=== PATIENT | female | born 2000 | race Caucasian/White ===

== ENCOUNTER 2024-04-11 07:51 | Outpatient (RCR) | payer BC, SELFPAY ==
[2024-04-11 07:45] VITALS: BP 106/62
[2024-04-11] MEDS: CORTROSYN 1 MG IV (08:29)
[2024-04-11 10:13] LABS: ACTH Stim Cortisol 0 Min 21.3 ug/dl
[2024-04-11 10:34] LABS: ACTH Stim Cortisol 30 Min 29.5 ug/dl
[2024-04-11 12:37] LABS: ACTH Stim Cortisol 60 Min 31.4 ug/dl
== END 2024-04-12 10:25 | disposition home or self-care (01) ==
LOC: OID 07:51
PROVIDERS: ATTENDING PHYSICIAN Internal Medicine Geriatric Medicine
DX: E27.40 Unspecified adrenocortical insufficiency (principal)
CPT/HCPCS: 36415; 82533; 96374

== ENCOUNTER → 2024-04-20 13:32 | Outpatient (REF) | payer BC, SELFPAY | LOC: HWRAD 13:32 | PROVIDERS: ATTENDING PHYSICIAN Internal Medicine Geriatric Medicine | DX: E05.00 Thyrotoxicosis with diffuse goiter without thyrotoxic crisis or storm (principal) | CPT/HCPCS: 76536 ==

== ENCOUNTER → 2025-02-05 14:33 | Outpatient (REF) | payer BC, SELFPAY | LOC: HWRAD 14:33 | PROVIDERS: ATTENDING PHYSICIAN Internal Medicine Endocrinology, Diabetes & Metabolism; FAMILY PHYSICIAN Internal Medicine Geriatric Medicine | DX: E06.3 Autoimmune thyroiditis (principal) | CPT/HCPCS: 76536 ==